=== PATIENT | male | born 1990 | race Caucasian/White ===

== ENCOUNTER 2020-09-16 16:53 | Emergency (ER) | payer MEDICAID, SELFPAY ==
[~2020-09-16] VITALS: Ht 175.3 cm; Wt 81.6 kg
[2020-09-16 17:13] VITALS: Ht 175.3 cm; Wt 81.6 kg
[2020-09-16 18:31] LABS: CALCIUM 8.7 mg/dL (8.5-10.1); CARBON DIOXIDE 25.9 mmol/L (21-32); CHLORIDE SERUM 107 mmol/L (98-107); CREATININE SERUM 0.9 mg/dL (0.7-1.3); GFR1 > 60 mL/min; GLUCOSE SERUM 103 mg/dL (74-106); SODIUM SERUM 145 mmol/L (136-145)
[2020-09-16 22:28] VITALS: BP 147/87
== END 2020-09-16 22:28 | disposition home or self-care (01) ==
LOC: ED 16:53
PROVIDERS: Emergency Medicine
DX: R41.82 Altered mental status, unspecified (principal); F10.129 Alcohol abuse with intoxication, unspecified; E87.6 Hypokalemia; E11.9 Type 2 diabetes mellitus without complications
CPT/HCPCS: G0480